=== PATIENT | male | born 1940 | race African-American/Black ===

== ENCOUNTER 2017-06-27 15:03 | Emergency (ER) | payer MEDICARE ==
[~2017-06-27] VITALS: Ht 182.9 cm; Wt 79.4 kg
[~2017-06-27 15:03] MED LIST: ATORVASTATIN CA20 MG ORAL; HYTRIN5 MG PO; NORVASC5 MG ORAL; PROSCAR5 MG ORAL
[2017-06-27] MEDS ORDERED: Piperacillin/Tazobactam 3.375 GM in NS 110 ML IVPB ONE (15:15)
[2017-06-27] MEDS ORDERED: Zosyn 3.375gm inj ONE (15:18)
[2017-06-27] MEDS ORDERED: MONUROL3 GM ORAL (15:25)
[2017-06-27 15:30] VITALS: BP 134/63
[2017-06-27 15:33] LABS: MEAN CORPUSCULAR HEMOGLOBIN 30.5 PG (27.0-31.0); MEAN CORPUSCULAR HGB CONC 31.3 G/DL (32.0-36.0); MEAN CORPUSCULAR VOLUME 97 FL (80-99); MEAN PLATELET VOLUME 7.1 FL (6.5-10.1); PLATELET COUNT 186 K/UL (150-450); RED BLOOD COUNT 3.46 M/UL (4.70-6.10); RED CELL DISTRIBUTION WIDTH 13.3 % (11.6-14.8); WHITE BLOOD COUNT 19.7 K/UL (4.8-10.8)
[2017-06-27 15:45] LABS: APPEARANCE,URINE SLIGHTLY CLOUDY; KETONES,URINE NEGATIVE (NEGATIVE); LEUKOCYTE ESTERASE ,URINE 3+ (NEGATIVE); NITRITE,URINE NEGATIVE (NEGATIVE); PH,URINE 6.5 (4.5-8.0); PROTEIN,URINE 3+ (NEGATIVE); UROBILINOGEN,URINE NORMAL MG/DL (0.0-1.0)
[2017-06-27 15:53] LABS: BACTERIA,URINE MANY /HPF; RBC,URINE 15-20 /HPF (0 - 0)
[2017-06-27 15:54] LABS: AMORPHOUS SEDIMENT,UR MODERATE /LPF
--- NOTE | 2017-06-27 15:54 | Diagnostic Imaging Report ---
Indication: SOB Technique: One view of the chest Comparison: 01/26/2016 Findings: The heart is borderline enlarged. Aorta is tortuous. Azygos lobe and fissure incidentally noted. Lungs and pleural spaces are clear. No significant change Impression: Borderline cardiomegaly. No acute process
[2017-06-27 16:02] LABS: ALANINE AMINOTRANSFERASE 27 U/L (12-78); ALBUMIN/GLOBULIN RATIO 0.7 (1.0-2.7); ANION GAP 16 mmol/L (5-15); ASPARTATE AMINO TRANSFERASE 19 U/L (15-37); CALCIUM 9.7 MG/DL (8.5-10.1); CARBON DIOXIDE 20 MMOL/L (21-32); CHLORIDE 103 MMOL/L (98-107); CKMB 0.9 NG/ML (0.0-3.6); CREATININE 2.9 MG/DL (0.55-1.30); POTASSIUM 4.2 MMOL/L (3.5-5.1); SODIUM 139 MMOL/L (136-145); TOTAL PROTEIN 8.7 G/DL (6.4-8.2)
--- NOTE | 2017-06-27 16:09 | Emergency Room Report ---
History of Present Illness General Chief Complaint: Male Urogenital Problems Source: EMS Present Illness HPI [id number] BIBEMS for "high bp" per patient Family allegedly states "painful urination" is reason he is here Patient states deleon for "a couple of weeks." Denies abd pain, naisea/vomiting, back pain, chest pain, SOB Spoke to Dr Tomlin History of CKD. Last serumCr 2.3 a few months prior NOT on Abx currently. History of bacteria in urine. Is susceptible to zosyn Allergies: Coded Allergies: ASPIRIN (Unverified Allergy, Unknown, 06/27/17) Patient History Past Medical History: unable to obtain, renal disease Past Surgical History: unable to obtain Pertinent Family History: unable to obtain Social History: Denies: smoking, alcohol use, drug use Immunizations: UTD Reviewed Nursing Documentation: PMH: Agreed, PSxH: Agreed Nursing Documentation-PMH Hx Hypertension: Yes Review of Systems All Other Systems: negative except mentioned in HPI Physical Exam Vital Signs Date Time Temp Pulse Resp B/P (MAP) Pulse Ox O2 Delivery O2 Flow Rate FiO2 06/27/17 14:55 100.9 120 20 133/73 98 Room Air Sp02 EP Interpretation: reviewed, normal General Appearance: normal inspection, well appearing, no apparent distress, alert Head: atraumatic ENT: normal ENT inspection, hearing grossly normal, normal voice Neck: normal inspection, full range of motion, supple, no bony tend Respiratory: normal inspection, lungs clear, normal breath sounds, no respiratory distress, no retraction, no wheezing Cardiovascular #1: regular rate, rhythm, no edema Gastrointestinal: normal inspection, normal bowel sounds, non tender, soft, no guarding, no hernia Genitourinary: no CVA tenderness, other - Deleon in place. Dark urine in bag Musculoskeletal: normal inspection, back normal, normal range of motion, Andrei' s Sign negative Neurologic: normal inspection, alert, responsive, speech normal Psychiatric: normal inspection, judgement/insight normal, mood/affect normal Skin: normal inspection, normal color, no rash Medical Decision Making Medicare Attestation I Edith King MD hereby attest that the medical record entry for date of service, 06/27/17 accurately reflects signatures/notations that I made in my capacity as MD when I treated/diagnosed the above listed Medicare beneficiary. I attest that this information is true, accurate and complete to the best of my knowledge. I understand that any falsification, omission, or concealment of material fact may subject me to administrative, civil, or criminal liability. This patient warrants hospital admission for extreme of age and has a condition that cannot be treated as outpatient. Diagnostic Impression: Primary Impression: Sepsis Qualified Codes: A41.9 - Sepsis, unspecified organism Additional Impressions: UTI (urinary tract infection) Qualified Codes: N30.01 - Acute cystitis with hematuria BZUZ (acute kidney injury) CKD (chronic kidney disease) Qualified Codes: N18.9 - Chronic kidney disease, unspecified ER Course VS with tachycardia, fever UA grossly infected Elevated leuks Lactate 1.6 SerumCr 2.9 Given IV zosyn Blood, Urine Cx pending CXR negative for PNA. No back pain, unlikely pyelo BUZZ on CKD likely from dehydration. IVF NS given 100% O2 on RA Stable for transfer [facility] [facility] [place] Tele admission See Call Notes for acceptign doctor EKG Diagnostic Results Rate: normal Rhythm: NSR ST Segments: other - TWI in inferior/lateral leads ASA given to the pt in ED: No Rhythm Strip Diag. Results EP Interpretation: yes Rate: 116 Rhythm: no PVC's, no ectopy Chest X-Ray Diagnostic Results Chest X-Ray Diagnostic Results : Chest X-Ray Ordered: Yes # of Views/Limited/Complete: 1 View Indication: Other - sepsis EP Interpretation: Yes Interpretation: no consolidation, no effusion, no pneumothorax, no acute cardiopulmonary disease Impression: No acute disease Electronically Signed by: Dr Edith King MD Last Vital Signs Date Time Temp Pulse Resp B/P (MAP) Pulse Ox O2 Delivery O2 Flow Rate FiO2 06/27/17 14:55 100.9 120 20 133/73 98 Room Air Referrals: [facility] (PCP) EDITH KING M.D. Jun 27, 2017 16:09
[2017-06-27 16:19] LABS: BILIRUBIN,DIRECT 0.3 MG/DL (0.0-0.3)
[2017-06-27 16:36] LABS: ANISOCYTOSIS 1+; BAND NEUTROPHILS % (MANUAL) 7 % (0-8); LYMPHOCYTES % (MANUAL) 9 % (20-45); NEUTROPHILS % (MANUAL) 79 % (45-75); TOTAL CELLS COUNTED 100
[2017-06-27 16:37] LABS: BASOPHILS % (MANUAL) 0 % (0-2); EOSINOPHILS % (MANUAL) 0 % (0-3); HYPOCHROMASIA 1+; PLATELET ESTIMATE ADEQUATE; PLATELET MORPHOLOGY NORMAL
[2017-06-27 18:30] VITALS: BP 125/56
[2017-06-27 19:24] VITALS: BP 125/56
--- NOTE | 2017-06-29 15:20 | Cardiology Report ---
APPROVED REPORT EKG Measurement Heart [id number] Sinus tachycardia Possible Left atrial enlargement Anteroseptal infarct, age undetermined T wave abnormality, consider inferolateral ischemia Prolonged QT Abnormal ECG
== END 2017-06-27 19:20 | disposition short-term general hospital (02) ==
LOC: EDBD 15:03 → EDBEDREQ 15:12 → EMR 15:53 → EDBEDREQ 16:12 → EMR 19:20
DX: A41.9 Sepsis, unspecified organism (principal); N39.0 Urinary tract infection, site not specified; N17.9 Acute kidney failure, unspecified; I12.9 Hypertensive chronic kidney disease with stage 1 through stage 4 chronic kidney disease, or unspecified chronic kidney disease; N18.9 Chronic kidney disease, unspecified; Z88.6 Allergy status to analgesic agent
CPT/HCPCS: 36415; 71010; 80053; 81003; 82248; 82550; 82553; 83605; 84484; 85007; 85025; 87040; 87086; 87181; 93005; 96361; 96365; 96375; 99285; J2405; J2543

== ENCOUNTER 2018-03-03 01:00 | Emergency (ER) | payer MEDICARE ==
[~2018-03-03] VITALS: Ht 180.3 cm; Wt 79.4 kg
[~2018-03-03 01:00] MED LIST changes: +MONUROL3 GM ORAL; +cloNIDine 0.2mg Tab ORAL ONE
[2018-03-03] MEDS ORDERED: cloNIDine 0.2mg Tab ONE (01:06)
[2018-03-03 01:23] VITALS: BP 199/97
[2018-03-03 01:59] LABS: BASOPHILS % (AUTO) 1.6 % (0.0-2.0); EOSINOPHILS % (AUTO) 2.6 % (0.0-3.0); HEMATOCRIT 41.9 % (42.0-52.0); HEMOGLOBIN 13.2 G/DL (14.2-18.0); MEAN CORPUSCULAR VOLUME 95 FL (80-99); NEUTROPHILS % (AUTO) 34.7 % (45.0-75.0); PLATELET COUNT 205 K/UL (150-450); RED BLOOD COUNT 4.41 M/UL (4.70-6.10); RED CELL DISTRIBUTION WIDTH 12.9 % (11.6-14.8); WHITE BLOOD COUNT 5.6 K/UL (4.8-10.8)
[2018-03-03 02:03] LABS: ANION GAP 11 mmol/L (5-15); BLOOD UREA NITROGEN 27 mg/dL (7-18); CALCIUM 9.4 MG/DL (8.5-10.1); CARBON DIOXIDE 24 MMOL/L (21-32); CHLORIDE 104 MMOL/L (98-107); CREATININE 2.4 MG/DL (0.55-1.30); POTASSIUM 3.8 MMOL/L (3.5-5.1); SODIUM 139 MMOL/L (136-145)
[2018-03-03 02:18] LABS: ALANINE AMINOTRANSFERASE 23 U/L (12-78); ALBUMIN 4.2 G/DL (3.4-5.0); ALBUMIN/GLOBULIN RATIO 0.9 (1.0-2.7); ALKALINE PHOSPHATASE 86 U/L (46-116); ASPARTATE AMINO TRANSFERASE 16 U/L (15-37); BILIRUBIN,TOTAL 0.4 MG/DL (0.2-1.0); CKMB 1.6 NG/ML (0.0-3.6); CREATINE KINASE 182 U/L (26-308)
--- NOTE | 2018-03-03 02:41 | Emergency Room Report ---
History of Present Illness General Chief Complaint: Hypertension Source: Patient, EMS Present Illness HPI Patient is a 77-year-old male who presented after increased chest discomfort. Patient was noted to have prior history of hypertension. He stated he had prior history of gastric reflux. He was noted to have increased burning sensation to his chest. The patient states that he had not been vomiting.The patient brought in by EMS was noted to have markedly elevated blood pressure. The patient had prior history of the umbilical hernia. Patient is unsure of the medications he takes. Allergies: Coded Allergies: ASPIRIN (Unverified Allergy, Unknown, 06/27/17) NSAIDS (NON-STEROIDAL ANTI-INFLAMMA (Unverified Allergy, Unknown, 03/03/18) Patient History Reviewed Nursing Documentation: PMH: Agreed; PSxH: Agreed Nursing Documentation-PMH Past Medical History: No History, Except For Hx Hypertension: Yes Hx Gastrointestinal Problems: Yes - GERD Review of Systems All Other Systems: negative except mentioned in HPI Physical Exam Vital Signs Date Time Temp Pulse Resp B/P (MAP) Pulse Ox O2 Delivery O2 Flow Rate FiO2 03/03/18 00:54 97.9 98 14 236/110 99 Room Air 97.9 Sp02 EP Interpretation: reviewed, normal General Appearance: normal inspection, well appearing, no apparent distress, alert, GCS 15 Head: atraumatic ENT: normal ENT inspection, hearing grossly normal, normal voice Neck: normal inspection, full range of motion, supple, no bony tend Respiratory: normal inspection, lungs clear, normal breath sounds, no respiratory distress, no retraction, no wheezing Cardiovascular #1: regular rate, rhythm, no edema Gastrointestinal: normal inspection, normal bowel sounds, non tender, soft, no guarding, other - reducible ventral hernia Genitourinary: no CVA tenderness Musculoskeletal: normal inspection, back normal, normal range of motion Neurologic: normal inspection, alert, responsive, speech normal Psychiatric: normal inspection, judgement/insight normal, mood/affect normal Skin: normal inspection, normal color, no rash Medical Decision Making Diagnostic Impression: Primary Impression: Hypertension Additional Impression: ACS (acute coronary syndrome) ER Course Patient presented for chest pain. Differential diagnosis included but was not limited to acute coronary syndrome, pulmonary embolism, pneumonia, aortic dissection, shingles, pneumothorax, aortic dissection, esophageal rupture, pericarditis. EKG interpreted by me showed normal sinus rhythm with a rate of [address] changes with some premature atrial contractions. The patient was noted to have the elevated blood pressure was given clonidine. Patient noted be allergic to aspirin is given by mouth Maalox. As well as Zofran.The patient was noted to have improvement in his chest discomfort. Dr. Patel at [facility] contacted [email or web address] Patient was noted to be pain-free at the time of transfer. Labs Test 03/03/18 01:11 White Blood Count 5.6 K/UL (4.8-10.8) Red Blood Count 4.41 M/UL (4.70-6.10) Hemoglobin 13.2 G/DL (14.2-18.0) Hematocrit 41.9 % (42.0-52.0) Mean Corpuscular Volume 95 FL (80-99) Mean Corpuscular Hemoglobin 29.9 PG (27.0-31.0) Mean Corpuscular Hemoglobin Concent 31.5 G/DL (32.0-36.0) Red Cell Distribution Width 12.9 % (11.6-14.8) Platelet Count 205 K/UL (150-450) Mean Platelet Volume 9.3 FL (6.5-10.1) Neutrophils (%) (Auto) 34.7 % (45.0-75.0) Lymphocytes (%) (Auto) 43.0 % (20.0-45.0) Monocytes (%) (Auto) 18.0 % (1.0-10.0) Eosinophils (%) (Auto) 2.6 % (0.0-3.0) Basophils (%) (Auto) 1.6 % (0.0-2.0) Prothrombin Time 10.4 SEC (9.30-11.50) Prothromb Time International Ratio 1.0 (0.9-1.1) Activated Partial Thromboplast Time 28 SEC (23-33) Sodium Level 139 MMOL/L (136-145) Potassium Level 3.8 MMOL/L (3.5-5.1) Chloride Level 104 MMOL/L (98-107) Carbon Dioxide Level 24 MMOL/L (21-32) Anion Gap 11 mmol/L (5-15) Blood Urea Nitrogen 27 mg/dL (7-18) Creatinine 2.4 MG/DL (0.55-1.30) Estimat Glomerular Filtration Rate mL/min (>60) Glucose Level 111 MG/DL (74-106) Calcium Level 9.4 MG/DL (8.5-10.1) Total Bilirubin 0.4 MG/DL (0.2-1.0) Aspartate Amino Transf (AST/SGOT) 16 U/L (15-37) Alanine Aminotransferase (ALT/SGPT) 23 U/L (12-78) Alkaline Phosphatase 86 U/L (46-116) Total Creatine Kinase 182 U/L (26-308) Creatine Kinase MB 1.6 NG/ML (0.0-3.6) Creatine Kinase MB Relative Index 0.8 Troponin I 0.000 ng/mL (0.000-0.056) Pro-B-Type Natriuretic Peptide 87 pg/mL (0-125) Total Protein 8.8 G/DL (6.4-8.2) Albumin 4.2 G/DL (3.4-5.0) Globulin 4.6 g/dL Albumin/Globulin Ratio 0.9 (1.0-2.7) EKG Diagnostic Results Rate: normal Rhythm: NSR ST Segments: other - anterior septal st elevation without dynamic changes on repeat Rhythm Strip Diag. Results EP Interpretation: yes Rhythm: NSR, no PVC's, no ectopy Last Vital Signs Date Time Temp Pulse Resp B/P (MAP) Pulse Ox O2 Delivery O2 Flow Rate FiO2 03/03/18 01:23 98 14 Room Air 03/03/18 01:23 97.9 199/97 99 97.9 Status: unchanged Disposition: XFER [facility] HOSP Condition: Stable Referrals: NOT CHOSEN MAREK/,REFERRING (PCP) Rudy Boles MD Mar 03, 2018 02:41
[2018-03-03 02:44] VITALS: BP 135/79
[2018-03-03 03:26] VITALS: BP 131/81
[2018-03-03 04:13] VITALS: BP 119/78
[2018-03-03 04:15] VITALS: BP 119/78
--- NOTE | 2018-03-03 12:17 | Diagnostic Imaging Report ---
Indication: Chest pain, shortness of breath Technique: One view of the chest Comparison: 06/27/2017 Findings: No acute infiltrates, effusions, or congestion. Tortuous calcified aorta. Normal heart size. Upper mediastinum unremarkable. No significant change Impression: No acute process.
--- NOTE | 2018-03-03 13:02 | Cardiology Report ---
APPROVED REPORT EKG Measurement Heart [id number] Sinus rhythm with premature atrial complexes Anteroseptal infarct, age undetermined Abnormal ECG
== END 2018-03-03 04:16 | disposition short-term general hospital (02) ==
LOC: EDBD 01:00 → EMR 02:13
DX: I24.9 Acute ischemic heart disease, unspecified (principal); I10 Essential (primary) hypertension; K21.9 Gastro-esophageal reflux disease without esophagitis; Z88.6 Allergy status to analgesic agent
CPT/HCPCS: 36415; 71045; 80053; 82550; 82553; 83880; 84484; 85025; 85610; 85730; 93005; 96374; 99283; J2405; 96365